=== PATIENT | female | born 1950 | race Caucasian/White ===

== ENCOUNTER 2018-02-08 16:22 | Inpatient (IN) ==
[~2018-02-08 16:22] MED LIST: Acetaminophen 325 MG TABLET PO PRN; Mag Hydrox/Al Hydrox/Simeth 30 ML UDC PO PRN
[2018-02-08] MEDS: *HR* Enoxaparin 40 MG/0.4 ML SYRINGE SQ SCH (16:40)
[2018-02-08] MEDS: *HR* OxyCODONE Immed Rel 5 MG TABLET PO PRN ×2 (16:40→21:37)
[2018-02-09] MEDS: *HR* OxyCODONE Immed Rel 5 MG TABLET PO PRN ×4 (01:57→21:48)
[2018-02-09] MEDS: *HR* Enoxaparin 40 MG/0.4 ML SYRINGE SQ SCH (05:40)
[2018-02-09] MEDS: hydroCHLOROthiazide 25 MG TABLET PO SCH (09:59)
[2018-02-09 10:20] LABS: Hematocrit 23.3 % (35.3-44.9); Hemoglobin 7.5 g/dL (11.5-15.4)
--- NOTE | 2018-02-09 11:29 | Internal Med History&Physical ---
Date of Encounter: 02/09/18 Time of Encounter: 11:27 Assessment and Plan (1) Status post total left knee replacement Current visit: No Status: Acute Patient is a status post left total knee replacement and was admitted to this facility for rehabilitation due to deconditioning. [facility] Left knee surgical incision appears dry and intact. No erythema noted and small amount of ecchymosis noted. Patient states that her pain is tolerable with current medications and will continue with current dosing. Patient be evaluated by physical therapy with recommendations pending. (2) Hypertension Current visit: No Status: Chronic No acute issues. We will continue with current medications. Qualifiers: Hypertension type: unspecified Qualified Code(s): I10 - Essential (primary ) hypertension (3) Acute blood loss anemia Current visit: No Status: Acute Patient had a hemoglobin of 8.4 at time of discharge from hospital. Today's hemoglobin was 7.5. Patient appears asymptomatic with vital signs and denies any dyspnea. Signs of active bleeding. We will guaiac stools. Most likely acute surgical blood loss. We will repeat labs in the morning. Internal Medicine - H&P: HPI Chief complaint: left total knee replacement Admitted From: Hospital to Hospital Transfer Plans for Post Hospital Care: Home History of present illness: Ms. Roberts is a 67 year old female who was [facility] she had a left total knee replacement. Per medical records patient's recovery after her knee replacement was uneventful at the hospital. Patient does have a history of hypertension, GERD, depression and dysphagia. Patient's left knee and leg remains slightly swollen with a midline knee surgical incision that appears dry and intact. Patient states that her pain has been tolerable with current medications, but does increased or immobilization. Denies any discomforts or shortness of breath. Productive cough. Afebrile. Past Med Surg Social Fam HX - Past Medical History Medical history: GERD, hypertension, thyroid disease - Past Surgical History Additional surgical history: hernia repair 2017. choley 2016. thyroidectomy half of thyroid removed 1989. hysterectomy 1986. c section 1971. [id number]. rotator cuff repair - Social History Smoking Status: Former smoker Smokeless Tobacco Status: No Alcohol use: none Drug use: none - Family History Mother Hx Family Cardiac Disorders: Yes Hx Family Cancer: Yes Internal Medicine - H&P: Meds Aspirin Enteric Coated [Aspirin EC] 325 mg PO BID #20 tablet. 02/05/18 [Rx] OxyCODONE Immed Rel [Roxicodone 5 MG] 5 mg PO Q6HR PRN 7 Days #28 tablet [Rx] Levothyroxine [Synthroid] 150 mcg PO DAILY 02/06/18 [History] Omeprazole [PriLOSEC] 20 mg PO DAILY 02/06/18 [History] hydroCHLOROthiazide [Hydrochlorothiazide] 25 mg PO DAILY 02/06/18 [History] 3 Allergy/AdvReac Type Severity Reaction Status Date / Time No Known Allergies Allergy Verified 01/26/18 14:42 All Systems PM: A 10-system review of systems was performed and is negative for pertinent findings except as documented above in the HPI. - Constitutional Constitutional: as per HPI, no chills, no fever(s), no night sweats - EENT Eyes: no change in vision, no discharge, no pain, no photophobia Ears: no ear discharge, no ear pain, no tinnitus Nose, mouth and throat: no dysphagia, no nasal discharge, no neck pain, no sore throat - Cardiovascular Cardiovascular ROS IM: as per HPI, no chest pain, no diaphoresis, no dyspnea, no lightheadedness, no palpitations, no syncope - Respiratory Respiratory: as per HPI, no cough, no dyspnea, no wheezing, no excessive phlegm production - Gastrointestinal Gastrointestinal: as per HPI, no abdominal pain, no diarrhea, no hematemesis, no hematochezia, no melena, no nausea, no vomiting - Genitourinary Genitourinary: no change in urinary stream, no dysuria, no flank pain, no hematuria - Musculoskeletal Musculoskeletal ROS IM: as per HPI, no numbness, no tingling - Integumentary Integumentary IM: no rash, no unusual bruising - Neurological Neurological ROS: no confusion, no convulsions, no focal weakness, no numbness, no tingling, no tremor(s) - Hematologic/Lymphatic Hematologic/Lymphatic: no easy bruising - Constitutional Vitals: Temp Pulse Resp BP Pulse Ox 98.1 F 90 17 124/80 95 02/09/18 11:00 02/09/18 11:00 02/09/18 11:00 02/09/18 11:00 02/09/18 11:00 General appearance: Present: A&O X 3 - Head Head exam: Present: atraumatic, normocephalic - Eye Eye exam: Present: PERRL, conjuntiva pink, sclera anicteric Pupils: Present: PERRL - Neck Neck exam general surgery: Present: supple, trachea midline. Absent: lymphadenopathy - Respiratory Respiratory exam: Present: CTAB. Absent: accessory muscle use, rales, rhonchi, wheezes - Cardiovascular Cardiovascular exam: Present: RRR, +S1, +S2. Absent: diastolic murmur, gallop, rubs, systolic murmur - GI/Abdominal GI/Abdominal exam: Present: normal bowel sounds, soft, no peritoneal signs. Absent: distended, tenderness - Extremities Exam Extremities exam: Present: warm, radial pulses palpable and symmetrical. Absent : calf tenderness, cyanotic, pedal edema Additional comments: Left knee and leg appears slightly swollen. Patient noted to have bilateral edema to legs with +1 pitting edema. Left knee midline surgical incision appears dry and intact. No erythema and small amount of ecchymosis noted - Neurological Exam Neurological exam: Present: CN II-XII intact, oriented X3, no focal deficits. Absent: pronater drift, facial droop, speech deficit - Skin Skin exam: Present: dry, intact Internal Med - H&P Results - Labs CBC & Chem 7: 02/09/18 09:45 Labs: Short CBC 02/09/18 Range/Units 09:45 Hgb 7.5 L (11.5-15.4) g/dL Hct 23.3 L (35.3-44.9) %
[2018-02-09 15:31] LABS: Hematocrit 21.8 % (35.3-44.9); Hemoglobin 7.3 g/dL (11.5-15.4); Mean Corpuscular HGB Conc 33.5 g/dL (31.6-35.5); Mean Corpuscular Volume 89.7 fL (83.0-100.0); Mean Platelet Volume 9.1 fL (9.4-12.4); Platelet Count 144 K/mcL (140-400); Red Blood Count 2.43 M/mcL (3.82-4.97); Red Cell Distribution Width 13.7 % (11.5-14.5)
[2018-02-09] MEDS: Sennosides/Docusate Sodium TABLET PO SCH (21:49)
[2018-02-10] MEDS: *HR* OxyCODONE Immed Rel 5 MG TABLET PO PRN ×3 (01:25→13:35)
[2018-02-10 04:47] LABS: BUN/Creatinine Ratio 15 (6-26); Blood Urea Nitrogen 14 mg/dL (8-23); Calcium 8.4 mg/dL (8.6-10.3); Carbon Dioxide 31 mEq/L (23-29); Chloride 98 mEq/L (98-107); Glucose 111 mg/dL (70-105); Osmolality,Calculated 281 (280-300); Potassium 3.4 mEq/L (3.5-5.1); Sodium 135 mEq/L (136-145); eGFR For Non-African Americans 60 (> 60)
[2018-02-10] MEDS: *HR* Enoxaparin 40 MG/0.4 ML SYRINGE SQ SCH (06:31)
[2018-02-10 09:41] LABS: Hemoglobin 7.9 g/dL (11.5-15.4)
[2018-02-10] MEDS: Sennosides/Docusate Sodium TABLET PO SCH (09:52)
[2018-02-10] MEDS: hydroCHLOROthiazide 25 MG TABLET PO SCH (09:52)
[2018-02-10] MEDS ORDERED: 0.9 % Sodium Chloride w KCl 20 MEQ/1,000 ML MLS IVC SCH (10:30)
--- NOTE | 2018-02-10 14:48 | Internal Med Progress Note ---
Date of Encounter: 02/10/18 Time of Encounter: 14:45 - Assessment and plan (1) Status post total left knee replacement Current Visit: No Status: Acute Assessment and plan: She is doing relatively well with therapy until she was symptomatically dizzy. We will continue as planned. (2) Hypertension Current Visit: No Status: Chronic Assessment and plan: Clinically stable. We will continue home regimen and follow. Qualifiers: Hypertension type: unspecified Qualified Code(s): I10 - Essential (primary ) hypertension (3) Hyperlipidemia Current Visit: No Status: Chronic Qualifiers: Hyperlipidemia type: unspecified Qualified Code(s): E78.5 - Hyperlipidemia , unspecified (4) Thyroid disease Current Visit: No Status: Chronic Assessment and plan: She is clinically euthyroid and we will keep her on same dose. (5) Acute blood loss anemia Current Visit: No Status: Acute Assessment and plan: Skin my discussion with patient, above. (6) Hypokalemia Current Visit: Yes Status: Acute Assessment and plan: We will follow. IV supplementation and oral supplementation, for now. - Subjective Interval history: Patient is weak and dizzy, with therapy and even at rest. We discussed postop acute blood loss anemia in the need for transfusion. We will give her fluids and try not to and she understands. I instructed her to let the covering physician know this weekend if she is still symptomatic. Because her potassium is low, we will also give her potassium in the IV. Her labs will be rechecked tomorrow and I let her know. She has not had a bowel movement for 5 days but took laxatives today. She minimizes her intake. I instructed her to keep using laxatives so that she may have a bowel movement because "what is inside her may turn into a brick." I assured her that she did not want to be dug out. - Constitutional Vitals: Temp Pulse Resp BP Pulse Ox 98.0 F 84 18 121/78 93 02/10/18 07:29 02/10/18 07:29 02/10/18 07:29 02/10/18 07:29 02/10/18 07:29 Exam: Examination: (Except as mentioned above): General: In no apparent distress. Alert and oriented 3. Nondiaphoretic. Head: Atraumatic and normocephalic. Respiratory: No use of accessory muscles. Lungs are clear throughout. Normal airflow. Cardiovascular: Regular rate and rhythm without murmur appreciated. Abdomen: Bowel sounds are normal. No hepatosplenomegaly mass or tenderness appreciated. Obese and therefore difficult to palpate deeply. Extremities: No cyanosis clubbing or change in edema. She still has marked edema of left lower extremity, about 3+. She has pretibial tenderness but no cord or calf tenderness. Skin: Warm and non-diaphoretic with no new lesions noted. Internal Medicine: Result - Labs CBC & Chem 7: 02/10/18 09:38 02/10/18 04:25 Labs: Short CBC 02/09/18 02/10/18 Range/Units 15:25 09:38 WBC 8.0 (4.3-11.1) K/mcL Hgb 7.3 L 7.9 L (11.5-15.4) g/dL Hct 21.8 L 24.0 L (35.3-44.9) % Plt Count 144 (140-400) K/mcL [facility] 02/10/18 04:25 Sodium 135 L Potassium 3.4 L Chloride 98 Carbon Dioxide 31 H BUN 14 Creatinine 0.94 Glucose 111 H Calcium 8.4 L Consult Discharge Plan - Plan Referrals: NONE,PCP [Primary Care Provider] -
[2018-02-11] MEDS: Sennosides/Docusate Sodium TABLET PO SCH ×3 (00:24→20:14)
[2018-02-11] MEDS: *HR* OxyCODONE Immed Rel 5 MG TABLET PO PRN ×3 (00:24→16:54)
[2018-02-11 06:01] LABS: Hematocrit 21.2 % (35.3-44.9); Hemoglobin 6.9 g/dL (11.5-15.4); Mean Corpuscular HGB Conc 32.5 g/dL (31.6-35.5); Mean Corpuscular Hemoglobin 29.4 pg (28.0-33.3); Mean Corpuscular Volume 90.2 fL (83.0-100.0); Mean Platelet Volume 9.2 fL (9.4-12.4); Platelet Count 182 K/mcL (140-400); Red Blood Count 2.35 M/mcL (3.82-4.97); Red Cell Distribution Width 13.7 % (11.5-14.5)
[2018-02-11] MEDS: *HR* Enoxaparin 40 MG/0.4 ML SYRINGE SQ SCH (06:05)
[2018-02-11 06:21] LABS: Alanine Aminotransferase 17 Units/L (7-52); Albumin 2.8 g/dL (3.5-5.7); Alkaline Phosphatase 79 Units/L (34-104); Aspartate Amino Transferase 15 Units/L (13-39); BUN/Creatinine Ratio 15 (6-26); Bilirubin,Total 0.8 mg/dL (0.3-1.0); Blood Urea Nitrogen 14 mg/dL (8-23); Calcium 8.2 mg/dL (8.6-10.3); Carbon Dioxide 33 mEq/L (23-29); Chloride 99 mEq/L (98-107); Globulin 2.7 g/dL (2.4-3.5); Glucose 113 mg/dL (70-105); Magnesium 2.3 mg/dL (1.6-2.6); Osmolality,Calculated 287 (280-300); Potassium 3.3 mEq/L (3.5-5.1); Sodium 138 mEq/L (136-145); Total Protein 5.5 g/dL (6.4-8.9); eGFR For Non-African Americans 60 (> 60)
[2018-02-11 07:32] LABS: Thyroid Stimulating Hormone 0.633 mcIU/mL (0.340-5.600)
--- NOTE | 2018-02-11 08:28 | Internal Med Progress Note ---
Date of Encounter: 02/11/18 Time of Encounter: 08:26 - Assessment and plan (1) Status post total left knee replacement Current Visit: No Status: Acute Assessment and plan: incision healing well H/H less then 7 transfuse one unit (2) Hypertension Current Visit: No Status: Chronic Assessment and plan: stable continue present med and follow Qualifiers: Hypertension type: unspecified Qualified Code(s): I10 - Essential (primary ) hypertension (3) Thyroid disease Current Visit: No Status: Chronic Assessment and plan: table on meds conitnue present dose no new change (4) Hypokalemia Current Visit: Yes Status: Acute Assessment and plan: low K slightly , since she is getting One unit blood it should help improve her K as well continue to follow (5) Acute blood loss anemia Current Visit: No Status: Acute Assessment and plan: s/p Surgery H/H has dropped to 6.9 transfuse one unit PRBC over 4 hours Labs Am - Subjective Interval history: complains of some dizziness especially yesterday Pain is well controlled no Complains of SOB fever or chills overall feels better and slowly improving Incision stable - Constitutional Vitals: Temp Pulse Resp BP Pulse Ox 98.8 F 71 18 132/66 98 02/11/18 07:20 02/11/18 07:20 02/11/18 07:20 02/11/18 07:20 02/11/18 07:20 General appearance: Present: cooperative, A&O X 3, morbidly obese, pleasant. Absent: severe distress - Head Head exam: Present: atraumatic - Eye Eye exam: Present: EOMI, PERRL - Neck Neck exam general surgery: Present: supple. Absent: tenderness, nuchal rigidity - Respiratory Respiratory exam: Present: CTAB. Absent: rales, respiratory distress, rhonchi, stridor, wheezes, tachypnea - Cardiovascular Cardiovascular exam: Present: +S1, +S2. Absent: gallop, systolic murmur, tachycardia - GI/Abdominal GI/Abdominal exam: Present: normal bowel sounds, soft. Absent: distended, firm , guarding, rebound, rigid, splenomegaly, tenderness Additional comments: Large and obese - Extremities Exam Extremities exam: Present: pedal edema. Absent: tenderness, warm Additional comments: Both side Pitting ++ - Incison Incision: Present: clean and dry, intact. Absent: draining, red, swollen, inflamed, erythema, indurated - Neurological Exam Neurological exam: Present: CN II-XII intact, oriented X3, no focal deficits. Absent: facial droop, speech deficit Internal Medicine: Result - Labs CBC & Chem 7: 02/11/18 05:25 02/11/18 05:25 Labs: Short CBC 02/10/18 02/11/18 Range/Units 09:38 05:25 WBC 7.0 (4.3-11.1) K/mcL Hgb 7.9 L 6.9 L (11.5-15.4) g/dL Hct 24.0 L 21.2 L (35.3-44.9) % Plt Count 182 (140-400) K/mcL BMP 02/11/18 05:25 Sodium 138 Potassium 3.3 L Chloride 99 Carbon Dioxide 33 H BUN 14 Creatinine 0.94 Glucose 113 H Calcium 8.2 L Liver Function 02/11/18 Range/Units 05:25 Total Bilirubin 0.8 (0.3-1.0) mg/dL AST 15 (13-39) Units/L ALT 17 (7-52) Units/L Alkaline Phosphatase 79 (34-104) Units/L Albumin 2.8 L (3.5-5.7) g/dL Consult Discharge Plan - Plan Referrals: NONE,PCP [Primary Care Provider] -
[2018-02-11] MEDS ORDERED: 0.9 % Sodium Chloride 500 ML ONE (09:09)
[2018-02-12 05:37] LABS: Hematocrit 24.3 % (35.3-44.9)
[2018-02-12] MEDS: *HR* Enoxaparin 40 MG/0.4 ML SYRINGE SQ SCH (05:58)
[2018-02-12 05:59] LABS: BUN/Creatinine Ratio 16 (6-26); Blood Urea Nitrogen 14 mg/dL (8-23); Calcium 8.6 mg/dL (8.6-10.3); Carbon Dioxide 33 mEq/L (23-29); Chloride 100 mEq/L (98-107); Glucose 112 mg/dL (70-105); Osmolality,Calculated 287 (280-300); Potassium 3.7 mEq/L (3.5-5.1); Sodium 138 mEq/L (136-145); eGFR For Non-African Americans > 60 (> 60)
[2018-02-12] MEDS: Sennosides/Docusate Sodium TABLET PO SCH ×2 (08:15→20:45)
--- NOTE | 2018-02-12 08:34 | Internal Med Progress Note ---
Date of Encounter: 02/12/18 Time of Encounter: 08:32 - Assessment and plan (1) Status post total left knee replacement Current Visit: No Status: Acute Assessment and plan: stable pain well controlled incision clean getting her PT (2) Hypertension Current Visit: No Status: Chronic Assessment and plan: stable BP no new change Qualifiers: Hypertension type: unspecified Qualified Code(s): I10 - Essential (primary ) hypertension (3) Thyroid disease Current Visit: No Status: Chronic Assessment and plan: stable on meds no new change (4) Hypokalemia Current Visit: Yes Status: Resolved Assessment and plan: resolued as expected stable (5) Acute blood loss anemia Current Visit: No Status: Acute Assessment and plan: Increase in H/H to 8 now after on unit of PRBC feels better as well - Subjective Interval history: Felling much better no complains of dizziness , pain is well controlled no fever or chills Tolerated One PRBC no complication - Constitutional Vitals: Temp Pulse Resp BP Pulse Ox 98.5 F 75 16 129/76 94 02/12/18 07:56 02/12/18 07:56 02/12/18 07:56 02/12/18 07:56 02/12/18 07:56 General appearance: Present: cooperative, A&O X 3, morbidly obese, pleasant. Absent: severe distress - Head Head exam: Present: atraumatic - Eye Eye exam: Present: EOMI, PERRL Pupils: Present: PERRL - Neck Neck exam general surgery: Present: supple. Absent: tenderness, nuchal rigidity - Respiratory Respiratory exam: Present: CTAB. Absent: respiratory distress, rhonchi, stridor , wheezes, tachypnea - Cardiovascular Cardiovascular exam: Present: RRR, +S1, +S2. Absent: JVD, systolic murmur - GI/Abdominal GI/Abdominal exam: Present: normal bowel sounds, soft. Absent: distended, firm , guarding, rebound, rigid Additional comments: obese - Extremities Exam Extremities exam: Present: pedal edema Additional comments: ++ b other side improving - Incison Incision: Present: clean and dry, intact. Absent: draining, red, swollen, erythema - Neurological Exam Neurological exam: Present: alert, CN II-XII intact, oriented X3, no focal deficits. Absent: facial droop, speech deficit Internal Medicine: Result - Labs CBC & Chem 7: 02/12/18 05:28 02/12/18 05:28 Labs: Short CBC 02/12/18 Range/Units 05:28 Hgb 8.0 L (11.5-15.4) g/dL Hct 24.3 L (35.3-44.9) % BMP 02/12/18 05:28 Sodium 138 Potassium 3.7 Chloride 100 Carbon Dioxide 33 H BUN 14 Creatinine 0.90 Glucose 112 H Calcium 8.6 Consult Discharge Plan - Plan Referrals: NONE,PCP [Primary Care Provider] -
[2018-02-12] MEDS: *HR* OxyCODONE Immed Rel 5 MG TABLET PO PRN (16:45)
[2018-02-13] MEDS: *HR* OxyCODONE Immed Rel 5 MG TABLET PO PRN ×2 (05:49→12:07)
[2018-02-13] MEDS: *HR* Enoxaparin 40 MG/0.4 ML SYRINGE SQ SCH (05:49)
[2018-02-13 06:28] LABS: Basophils % 0.4 %; Eosinophils # 0.2 K/mcL (0.0-0.6); Eosinophils % 3.2 %; Hematocrit 25.1 % (35.3-44.9); Hemoglobin 8.2 g/dL (11.5-15.4); Immature Granulocytes % 3.4 % (0-4); Lymphocytes # 1.2 K/mcL (0.6-4.6); Lymphocytes % 16.2 %; Mean Corpuscular HGB Conc 32.7 g/dL (31.6-35.5); Mean Corpuscular Hemoglobin 29.4 pg (28.0-33.3); Mean Platelet Volume 8.9 fL (9.4-12.4); Monocytes # 0.7 K/mcL (0.0-1.3); Monocytes % 9.4 %; Nucleated Red Blood Cells 0.4 /100 WBC (0); Platelet Count 207 K/mcL (140-400); Red Blood Count 2.79 M/mcL (3.82-4.97); Red Cell Distribution Width 14.2 % (11.5-14.5); Segmented Neutrophils % 67.4 %
[2018-02-13 06:45] LABS: BUN/Creatinine Ratio 14 (6-26); Blood Urea Nitrogen 13 mg/dL (8-23); Calcium 8.3 mg/dL (8.6-10.3); Carbon Dioxide 33 mEq/L (23-29); Chloride 98 mEq/L (98-107); Glucose 111 mg/dL (70-105); Osmolality,Calculated 281 (280-300); Potassium 3.1 mEq/L (3.5-5.1); Sodium 135 mEq/L (136-145); eGFR For Non-African Americans 58 (> 60)
[2018-02-13 06:52] VITALS: BP 116/74
[2018-02-13] MEDS: Sennosides/Docusate Sodium TABLET PO SCH (08:23)
--- NOTE | 2018-02-13 11:01 | Discharge Summary ---
Date of Encounter: 02/13/18 Time of Encounter: 10:56 - Discharge Diagnosis (1) Status post total left knee replacement Priority: Primary Status: Acute Comments: Left knee continues to be slightly swollen, but midline surgical incision remains dry and intact. Minimal ecchymosis noted and no erythema noted. Patient has been participating in physical therapy and progressing well. Patient is to continue follow-up with orthopedic surgeon and PCP after discharge. Patient will be doing outpatient therapy after discharge. (2) Hypertension Priority: Secondary Status: Chronic Comments: Vital signs have remained stable during her stay at this facility. Patient is to continue with home medications after discharge and follow-up with PCP. Qualifiers: Hypertension type: unspecified Qualified Code(s): I10 - Essential (primary ) hypertension (3) Acute blood loss anemia Priority: Secondary Status: Acute Comments: Patient had postoperative surgical blood loss anemia after her transfer to this facility and required a transfusion of one unit of packed RBCs. Patient's hemoglobin has remained stable with her last hemoglobin at 8.2. Patient is to continue follow-up with PCP with recommendations of lab work in the next week. Hospital course: Ms. Roberts is a 67 year old female who was admitted to this facility from an [facility] where she had a left total knee replacement. Per medical records patient's recovery after her knee replacement was uneventful at the hospital. Patient does have a history of hypertension, GERD, depression and dysphagia. Patient's left knee and leg remains slightly swollen with a midline knee surgical incision that appears dry and intact. Patient states that her pain has been tolerable with current medications, but does increased or immobilization. Denies any discomforts or shortness of breath at time of discharge. Has remained afebrile. Patient did have a low hemoglobin postoperatively continued to drift down, requiring a transfusion. Patient's hemoglobin has remained stable after transfusion with the most recent being at 8.2. Patient will be discharged home with recommendations follow-up with her orthopedic surgeon and PCP within the next 1-2 weeks. Recommendations for blood work in the next 1-2 weeks, due to her blood loss anemia. We will continue with her physical therapy as an outpatient at this facility. Discharge discussed with: patient Time spent discussing smoking cessation with patient: 3 to 10 minutes - Time Spent with Patient Total time spent providing and/or coordinating discharge services: Less than 30 minutes - Discharge Medications Home Medications: Aspirin Enteric Coated [Aspirin EC] 325 mg PO BID #20 tablet. 02/05/18 [Rx] OxyCODONE Immed Rel [Roxicodone 5 MG] 5 mg PO Q6HR PRN 7 Days #28 tablet [Rx] Levothyroxine [Synthroid] 150 mcg PO DAILY 02/06/18 [History] Omeprazole [PriLOSEC] 20 mg PO DAILY 02/06/18 [History] hydroCHLOROthiazide [Hydrochlorothiazide] 25 mg PO DAILY 02/06/18 [History] Allergies/Adverse Reactions: 3 Allergy/AdvReac Type Severity Reaction Status Date / Time No Known Allergies Allergy Verified 01/26/18 14:42 Date of admission: 02/08/18 16:22 Primary care physician: PCP NONE Consults: 02/08/18 16:07 Consult to Occupational Therapy [CONS] Routine Comment: Evaluate, develop and implement POC Reason for Consult: LTKR Does patient have active BEDREST order?: No Is patient medically & hemodynamically stable?: Yes PT [Consult to Physical Therapy] [CONS] Routine Comment: Evaluate, develop and implement POC Reason for Consult: LTKR Does patient have active BEDREST order?: No Is patient medically & hemodynamically stable?: Yes 02/08/18 16:08 Consult to Recreational Therapy [CONS] Routine Comment: Discharging clinician: Mason Glez - Constitutional Vitals: Temp Pulse Resp BP Pulse Ox 97.4 F L 69 16 116/74 93 02/13/18 06:51 02/13/18 06:51 02/13/18 06:51 02/13/18 06:51 02/13/18 06:51 General appearance: Present: cooperative, A&O X 3, morbidly obese, pleasant. Absent: severe distress - Head Head exam: Present: atraumatic, normocephalic - Eye Eye exam: Present: PERRL, conjuntiva pink, sclera anicteric Pupils: Present: PERRL - Neck Neck exam general surgery: Present: supple, trachea midline. Absent: lymphadenopathy - Respiratory Respiratory exam: Present: CTAB. Absent: accessory muscle use, rales, rhonchi, wheezes - Cardiovascular Cardiovascular exam: Present: RRR, +S1, +S2. Absent: diastolic murmur, gallop, rubs, systolic murmur - GI/Abdominal GI/Abdominal exam: Present: normal bowel sounds, soft, no peritoneal signs. Absent: distended, tenderness - Extremities Exam Extremities exam: Present: warm, radial pulses palpable and symmetrical. Absent : calf tenderness, cyanotic, pedal edema Additional comments: Patient continues to have moderate swelling to her left knee with a midline incision that remains dry and intact. No drainage. Minimal ecchymosis and no erythema noted. - Neurological Exam Neurological exam: Present: CN II-XII intact, oriented X3, no focal deficits. Absent: pronater drift, facial droop, speech deficit - Skin Skin exam: Present: dry, intact - Patient Status Disposition: Home, Self-Care Condition: Good Functional capacity at discharge: uses cane/walker Overall status at discharge: patient is progressing back to baseline - Discharge Instructions Follow Up With: NONE,PCP [Primary Care Provider] - - Diet and Activity Activity: as per physical therapy Diet: low fat, low cholesterol, low salt diet
== END 2018-02-13 15:00 | disposition home or self-care (01) | DRG 560 ==
LOC: INPGRE 16:22